=== PATIENT | male | born 1995 | race American Indian/Alaskan Native ===

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

== ENCOUNTER 2017-04-30 07:41 | Emergency (ER) | payer MEDICAID ==
[2017-04-30 08:29] VITALS: BP 130/85
--- NOTE | 2017-04-30 09:22 | XRay Report ---
ABDOMEN TWO VIEWS: 04/30/17 08:40:00 CLINICAL: Abdominal pain. COMPARISON:None. FINDINGS: Supine upright views demonstrate a normal bowel gas pattern with a large volume of stool throughout the colon. Gas and stool in the rectum. No distended small bowel and no air-fluid levels. Mild distention of the stomach. No pneumoperitoneum. No mass or suspicious calcifications. The bones and soft tissues are normal. IMPRESSION: Negative abdomen.
--- NOTE | 2017-04-30 11:32 | Emergency Department Report ---
ED Abdominal Pain HPI - General Chief Complaint: Abdominal Pain Stated Complaint: CONSTIPATED Source: patient Mode of arrival: Ambulatory Limitations: No Limitations - History of Present Illness MD Complaint: abdominal pain -: Gradual Location: diffuse Migration to: no migration Severity scale (0 -10): 0 Worsens With: bowel movement Associated Symptoms: denies other symptoms - Related Data Previous Rx's Medication Instructions Recorded Last Taken Type Ibuprofen [Motrin] 600 mg PO Q8H PRN #15 tablet 09/18/16 Unknown Rx Allergies Allergy/AdvReac Type Severity Reaction Status Date / Time No Known Allergies Allergy Verified 04/30/17 08:23 ED Review of Systems ROS: Stated complaint: CONSTIPATED Other details as noted in HPI Comment: All other systems reviewed and negative Gastrointestinal: abdominal pain ED Past Medical Hx - Past Medical History Additional medical history: PYLENORIC STENOSIS; history of a bowel obstruction as a child - Surgical History Additional Surgical History: PYLENORIC STENOSIS - Social History Smoking Status: Never Smoker Substance Use Type: None - Medications Home Medications: Home Medications Medication Instructions Recorded Confirmed Last Taken Type Ibuprofen [Motrin] 600 mg PO Q8H PRN #15 tablet 09/18/16 Unknown Rx ED Physical Exam - General Limitations: No Limitations General appearance: alert - Head Head exam: Present: atraumatic - Eye Eye exam: Present: normal appearance Pupils: Present: normal accommodation - ENT ENT exam: Present: normal exam - Neck Neck exam: Present: normal inspection - Respiratory Respiratory exam: Present: normal lung sounds bilaterally - Cardiovascular Cardiovascular Exam: Present: regular rate - GI/Abdominal GI/Abdominal exam: Present: soft, normal bowel sounds. Absent: distended, tenderness, guarding, rebound, rigid, diminished bowel sounds, hyperactive bowel sounds, hypoactive bowel sounds, organomegaly, mass, bruit, pulsatile mass , hernia - Rectal Rectal exam: Present: deferred - Extremities Exam Extremities exam: Present: normal inspection - Back Exam Back exam: Present: normal inspection - Neurological Exam Neurological exam: Present: alert, oriented X3 - Psychiatric Psychiatric exam: Present: normal affect, normal mood - Skin Skin exam: Present: warm, dry ED Course Vital Signs 04/30/17 04/30/17 08:24 08:29 Temperature 97.8 F 97.8 F Pulse Rate 64 Respiratory 18 Rate Blood Pressure 130/85 Blood Pressure 130/85 [Right] O2 Sat by Pulse 100 Oximetry - Reevaluation(s) Reevaluation #1: 04/30/17 11:46 to er several hours ago for constipation states had bowel obstruction in past abd series neg no abd pain no n/v/d 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 he is non ill non toxic abd non tender no fever taking po needed work note. dc home w dc poc. ED Medical Decision Making - Radiology Data Radiology results: report reviewed, image reviewed - Medical Decision Making see note - Differential Diagnosis ro obstruction Critical care attestation.: If time is entered above; I have spent that time in minutes in the direct care of this critically ill patient, excluding procedure time. ED Disposition Clinical Impression: Constipation Disposition: DC-01 TO HOME OR SELFCARE Is pt being admited?: No Does the pt Need Aspirin: No Condition: Stable Instructions: Constipation (ED) Additional Instructions: over the counter miralax today then colace twice per day high fiber diet increase water in diet Referrals: PRIMARY CARE [Primary Care Provider] - 3-5 Days [facility][Note 3] [Outside] - 3-5 Days [facility] [Outside] - 3-5 Days Forms: Work/School Release Form(ED) Time of Disposition: 11:26
== END 2017-04-30 11:40 | disposition home or self-care (01) ==
LOC: ED 07:41
DX: K59.00 Constipation, unspecified (principal)
CPT/HCPCS: 74019

== ENCOUNTER 2017-05-30 00:53 | Emergency (ER) | payer MEDICAID ==
[2017-05-30 02:03] LABS: Bilirubin,Urine NEG (Negative); Blood,Urine NEG (Negative); Color,Urine Amber (Yellow); Mucus,Urine 3+ /HPF
[2017-05-30 02:43] LABS: Hemoglobin 14.8 gm/dl (11.8-15.2); Mean Corpuscular HGB Conc 34 % (32-34); Mean Corpuscular Hemoglobin 28 pg (28-32); Mean Corpuscular Volume 84 fl (84-94); Platelet Count 299 K/mm3 (140-440); Red Blood Count 5.22 M/mm3 (3.65-5.03); Red Cell Distribution Width 13.1 % (13.2-15.2)
[2017-05-30] MEDS ORDERED: BICILLIN L-A IM ONE (02:55)
--- NOTE | 2017-05-30 03:03 | Emergency Department Report ---
HPI - General Chief Complaint: Urogenital-Male Time Seen by Provider: 05/30/17 02:45 - HPI HPI: Room 25 The patient is a 21-year-old male presenting with chief complaint of abdominal pain and penile sore. The patient states he has had constant lower abdominal soreness for the past 3-4 weeks in addition to nausea and vomiting. The patient states she's been constipated for the same amount of time and laxatives do not help. The patient states approximately one month ago he noticed a sore on his penis as well as a "knot" in his right groin. When asked if the penile lesion hurts, the patient replies that it is "a little sore." The patient states this penile lesion is the reason he thought he may have been exposed to HIV. Patient states that he has not had any exposure to someone known to have HIV. The patient admits to chills and a subjective fever at home. Location: [See above] Duration: [See above] Quality: [See above] Severity: [See above] Modifying factors: [see above] Context: [see above] Mode of transportation: unknown ED Past Medical Hx - Past Medical History Previous Medical History?: Yes Additional medical history: Pyloric stenosis; history of a bowel obstruction as a child - Surgical History Past Surgical History?: Yes Additional Surgical History: Correction of pyloric stenosis - Family History Family history: no significant - Social History Smoking Status: Never Smoker Substance Use Type: None (denies illicit drug use), Alcohol (occasional) - Medications Home Medications: Home Medications Medication Instructions Recorded Confirmed Last Taken Type Ibuprofen [Motrin] 600 mg PO Q8H PRN #15 tablet 09/18/16 Unknown Rx Docusate Sodium [Colace] 100 mg PO BID PRN #30 capsule 05/30/17 Unknown Rx Doxycycline [Vibramycin CAP] 100 mg PO Q12HR #20 capsule 05/30/17 Unknown Rx HYDROcodone/APAP 5-325 [[place] 1 - 2 each PO Q6HR PRN #10 tablet 05/30/17 Unknown Rx 5/325] Lactulose [Cephulac] 20 gm PO QDAY #90 ml 05/30/17 Unknown Rx ED Review of Systems ROS: Stated complaint: POSSIBLE HIV EXPOSURE,HERNIA Other details as noted in HPI Constitutional: chills, fever Gastrointestinal: abdominal pain, nausea, vomiting, constipation Genitourinary: other (penile sore) Physical Exam - Physical Exam Vital Signs: Vital Signs 05/30/17 01:12 Temperature 98.4 F Pulse Rate 70 Respiratory 18 Rate Blood Pressure 130/83 O2 Sat by Pulse 100 Oximetry Physical Exam: GENERAL: The patient is well-developed well-nourished male lying on stretcher not appearing to be in acute distress. [] HEENT: Normocephalic. Atraumatic. Extraocular motions are intact. Patient has moist mucous membranes. NECK: Supple. Trachea midline CHEST/LUNGS: Clear to auscultation. There is no respiratory distress noted. HEART/CARDIOVASCULAR: Regular. There is no tachycardia. There is no gallop rub or murmur. ABDOMEN: Abdomen is soft, with tenderness to palpation in the right lower quadrant, suprapubic and left lower quadrant. Patient has normal bowel sounds. There is no abdominal distention. SKIN: There is a singular circular lesion that is indurated to the right side of the penis that appears consistent with primary syphilis. The lesion is approximately 1.5 cm in diameter NEURO: The patient is awake, alert, and oriented. The patient is cooperative. The patient has normal speech MUSCULOSKELETAL: There is no evidence of acute injury. *The nurse Olaf was present during the genitourinary exam* ED Course Vital Signs 05/30/17 01:12 Temperature 98.4 F Pulse Rate 70 Respiratory 18 Rate Blood Pressure 130/83 O2 Sat by Pulse 100 Oximetry ED Medical Decision Making - Lab Data Result diagrams: 05/30/17 02:29 05/30/17 02:29 Laboratory Tests 05/30/17 05/30/17 05/30/17 01:33 02:29 02:29 WBC 6.1 RBC 5.22 H Hgb 14.8 Hct 44.0 MCV 84 MCH 28 MCHC 34 RDW 13.1 L Plt Count 299 Sodium 139 Potassium 3.5 L Chloride 98.8 Carbon Dioxide 28 Anion Gap 16 BUN 12 Creatinine 0.8 Estimated GFR > 60 BUN/Creatinine Ratio 15 Glucose 82 Calcium 9.2 Total Bilirubin 0.40 AST 19 ALT 7 Alkaline Phosphatase 81 Total Protein 8.6 H Albumin 4.0 Albumin/Globulin Ratio 0.9 Urine Color [place] Urine Turbidity Clear Urine pH 6.0 Ur Specific [place] 1.028 Urine Protein 30 mg/dl Urine Glucose (UA) Neg Urine Ketones Tr Urine Blood Neg Urine Nitrite Neg Urine Bilirubin Neg Urine Urobilinogen 4.0 Ur Leukocyte Esterase Sm Urine WBC (Auto) 31.0 H Urine RBC (Auto) 1.0 Urine Mucus 3+ - Radiology Data Radiology results: report reviewed (CT abdomen and pelvis), image reviewed (CT abdomen and pelvis) FINAL REPORT EXAM: CT ABDOMEN PELVIS W CON HISTORY: lower abdominal pain TECHNIQUE: CT images are acquired through the Abdomen and Pelvis following intravenous administration of contrast. Transaxial, coronal and sagittal reformations are provided. PRIORS: None FINDINGS: Partially visualized intrathoracic contents are unremarkable. The liver, gallbladder, pancreas, spleen, and adrenal glands are unremarkable. Kidneys show no worrisome lesions, hydronephrosis, or calculi. Urinary bladder is unremarkable. Small and large bowel are normal in caliber. Appendix is normal. Small volume of pelvic ascites. No focal fluid collection to suggest abscess formation. No pneumoperitoneum. Aorta is normal in course and caliber. Superficial soft tissues are unremarkable. No acute or aggressive appearing skeletal findings. IMPRESSION: Small volume of pelvic ascites is most likely secondary to gastrointestinal infection/inflammation. No bowel wall thickening, pneumoperitoneum or abscess formation identified. The appendix is normal. Transcribed By: MB Dictated By: GREGG GONZALEZ MD Electronically Authenticated By: GREGG GONZALEZ MD Signed Date/Time: 05/30/17457 DD/ 7 TD/TT: 05/30/17457 - Differential Diagnosis primary syphilis, constipation, small bowel obstruction Critical care attestation.: If time is entered above; I have spent that time in minutes in the direct care of this critically ill patient, excluding procedure time. ED Disposition Clinical Impression: Primary syphilis, Abdominal pain, Constipation Disposition: -01 TO HOME OR SELFCARE Is pt being admited?: No Does the pt Need Aspirin: No Condition: Stable Instructions: Syphilis (ED) Additional Instructions: You were administered penicillin G benzathine 2.4 million units IM in the ED for treatment of primary syphilis. Return to the emergency department immediately should you develop worsening symptoms, fever, inability to tolerate food or liquid or any other concerns. Prescriptions: Docusate Sodium [Colace] 100 mg PO BID PRN #30 capsule PRN Reason: Constipation Doxycycline [Vibramycin CAP] 100 mg PO Q12HR #20 capsule HYDROcodone/APAP 5-325 [[place] 5/325] 1 - 2 each PO Q6HR PRN #10 tablet PRN Reason: Pain Lactulose [Cephulac] 20 gm PO QDAY #90 ml Referrals: JG WOLF MD [Staff Physician] - 3-5 Days (Dr. Wolf is a urologist. Please follow-up with him for further evaluation of your penile lesion) [facility] [Outside] - 3-5 Days Time of Disposition: 05:29
[2017-05-30 03:08] LABS: Alanine Aminotransferase 7 units/L (7-56); BUN/Creatinine Ratio 15; Blood Urea Nitrogen 12 mg/dL (9-20); Calcium 9.2 mg/dL (8.4-10.2); Hemolysis Index 5
[2017-05-30] MEDS ORDERED: ZOFRAN IV ONE (03:14)
[2017-05-30 03:28] VITALS: BP 132/72
--- NOTE | 2017-05-30 05:03 | Cat Scan Report ---
FINAL REPORT EXAM: CT ABDOMEN PELVIS W CON HISTORY: lower abdominal pain TECHNIQUE: CT images are acquired through the Abdomen and Pelvis following intravenous administration of contrast. Transaxial, coronal and sagittal reformations are provided. PRIORS: None FINDINGS: Partially visualized intrathoracic contents are unremarkable. The liver, gallbladder, pancreas, spleen, and adrenal glands are unremarkable. Kidneys show no worrisome lesions, hydronephrosis, or calculi. Urinary bladder is unremarkable. Small and large bowel are normal in caliber. Appendix is normal. Small volume of pelvic ascites. No focal fluid collection to suggest abscess formation. No pneumoperitoneum. Aorta is normal in course and caliber. Superficial soft tissues are unremarkable. No acute or aggressive appearing skeletal findings. IMPRESSION: Small volume of pelvic ascites is most likely secondary to gastrointestinal infection/inflammation. No bowel wall thickening, pneumoperitoneum or abscess formation identified. The appendix is normal.
== END 2017-05-30 05:38 | disposition home or self-care (01) ==
LOC: ED 00:53
DX: A51.0 Primary genital syphilis (principal); R10.9 Unspecified abdominal pain; K59.00 Constipation, unspecified
CPT/HCPCS: 36415; 74177; 80053; 81001; 85027; 86592; 86593; 86780; 87591; 96372; 96374; 99284; J0561; J2405; Q9967

== ENCOUNTER 2017-07-14 08:47 | Emergency (ER) | payer MEDICAID ==
[2017-07-14 09:08] VITALS: BP 124/83
--- NOTE | 2017-07-14 09:46 | Emergency Department Report ---
ED Male HPI - General Chief complaint: Urogenital-Male Stated complaint: STD Time Seen by Provider: 07/14/17 09:38 Source: patient Mode of arrival: Ambulatory Limitations: No Limitations - History of Present Illness Initial comments: This is a 21-year-old male nontoxic, well nourished in appearance, no acute signs of distress presents to the ED with c/o of penile discharge. Patient stated that he had a sexual intercourse unprotected 2 weeks ago and then developed these symptoms. Patient stated that in the triage he stated "possible syphilis" but then stated it was gonorrhea and chlamydia that he meant. Denies any rash. Patient denies any testicular pain, penile ulcers, penile lesions, testicular swelling. Patient denies any body aches, fever, chills, nausea, vomiting, headache, stiff neck, numbness or tingling. Patient denies any chest pain or shortness of breath. Patient denies any urinary symptoms. He denies any allergies or significant past medical history. Patient stated he wants to be treated empirically in the ED. MD Complaint: penile discharge -: week(s) (1) Location: penis Radiation: none Severity: mild Severity scale (0 -10): 0 Improves with: none Worsens with: none discharge. denies: swelling, mass, rash, urinary retention, blood in urine, dysuria, fever, nausea/vomiting, incontinence - Related Data Sexually active: Yes Previous Rx's Medication Instructions Recorded Last Taken Type Ibuprofen [Motrin] 600 mg PO Q8H PRN #15 tablet 09/18/16 Unknown Rx Docusate Sodium [Colace] 100 mg PO BID PRN #30 capsule 05/30/17 Unknown Rx Doxycycline [Vibramycin CAP] 100 mg PO Q12HR #20 capsule 05/30/17 Unknown Rx HYDROcodone/APAP 5-325 [[place] 1 - 2 each PO Q6HR PRN #10 tablet 05/30/17 Unknown Rx 5/325] Lactulose [Cephulac] 20 gm PO QDAY #90 ml 05/30/17 Unknown Rx Allergies Allergy/AdvReac Type Severity Reaction Status Date / Time No Known Allergies Allergy Verified 04/30/17 08:23 ED Review of Systems ROS: Stated complaint: STD Other details as noted in HPI Constitutional: denies: chills, fever Eyes: denies: eye pain, eye discharge, vision change ENT: denies: ear pain, throat pain Respiratory: denies: cough, shortness of breath, wheezing Cardiovascular: denies: chest pain, palpitations Endocrine: no symptoms reported Gastrointestinal: denies: abdominal pain, nausea, diarrhea Genitourinary: discharge. denies: urgency, dysuria, frequency, hematuria Musculoskeletal: denies: back pain, joint swelling, arthralgia Skin: denies: rash, lesions Neurological: denies: headache, weakness, paresthesias Psychiatric: denies: anxiety, depression Hematological/Lymphatic: denies: easy bleeding, easy bruising ED Past Medical Hx - Past Medical History Previous Medical History?: Yes Additional medical history: Pyloric stenosis; history of a bowel obstruction as a child - Surgical History Past Surgical History?: Yes Additional Surgical History: Correction of pyloric stenosis - Social History Smoking Status: Never Smoker Substance Use Type: Marijuana - Medications Home Medications: Home Medications Medication Instructions Recorded Confirmed Last Taken Type Ibuprofen [Motrin] 600 mg PO Q8H PRN #15 tablet 09/18/16 Unknown Rx Docusate Sodium [Colace] 100 mg PO BID PRN #30 capsule 05/30/17 Unknown Rx Doxycycline [Vibramycin CAP] 100 mg PO Q12HR #20 capsule 05/30/17 Unknown Rx HYDROcodone/APAP 5-325 [[place] 1 - 2 each PO Q6HR PRN #10 tablet 05/30/17 Unknown Rx 5/325] Lactulose [Cephulac] 20 gm PO QDAY #90 ml 05/30/17 Unknown Rx ED Physical Exam - General Limitations: No Limitations General appearance: alert, in no apparent distress - Head Head exam: Present: atraumatic, normocephalic - Eye Eye exam: Present: normal appearance Pupils: Present: normal accommodation - ENT ENT exam: Present: normal exam, mucous membranes moist - Neck Neck exam: Present: normal inspection, full ROM - Respiratory Respiratory exam: Present: normal lung sounds bilaterally. Absent: respiratory distress, wheezes, rales, rhonchi, stridor - Cardiovascular Cardiovascular Exam: Present: regular rate, normal rhythm, normal heart sounds. Absent: bradycardia, tachycardia, irregular rhythm, systolic murmur, diastolic murmur, rubs, gallop - GI/Abdominal GI/Abdominal exam: Present: soft, normal bowel sounds - Rectal Rectal exam: Present: deferred - exam: Present: normal inspection, urethral discharge, other (No testicular pain or swelling. No penile lesions or ulcers.). Absent: testicular tenderness , scrotal swelling, vertical testicular lie External exam: Present: normal external exam. Absent: erythema, swelling, lesions, lacerations, ecchymosis, bleeding - Extremities Exam Extremities exam: Present: normal inspection, full ROM, normal capillary refill - Back Exam Back exam: Present: normal inspection, full ROM - Neurological Exam Neurological exam: Present: alert, oriented X3, normal gait - Psychiatric Psychiatric exam: Present: normal affect, normal mood - Skin Skin exam: Present: warm, dry, intact, normal color. Absent: rash ED Course Vital Signs 07/14/17 09:04 Temperature 98.6 F Pulse Rate 61 Respiratory 16 Rate Blood Pressure 124/83 O2 Sat by Pulse 100 Oximetry - Reevaluation(s) Reevaluation #1: 07/14/17 09:47 Patient is speaking in full sentences with no signs of distress noted. ED Medical Decision Making - Medical Decision Making This is a 21-year-old male that presents with possible STD. Patient denies any urinary symptoms. Patient is stable and was examined by me. Gonorrhea chlamydia swab has been obtained. Patient was instructed to return in 3 days for results. Patient wants to be treated empirically as patient received Rocephin and azithromycin. Patient was instructed to Follow-up with a primary care doctor in 3-5 days or if symptoms worsen and continue return to emergency room as soon as possible. At time of discharge, the patient does not seem toxic or ill in appearance. No acute signs of distress noted. Patient agrees to discharge treatment plan of care. No further questions noted by the patient. Critical care attestation.: If time is entered above; I have spent that time in minutes in the direct care of this critically ill patient, excluding procedure time. ED Disposition Clinical Impression: Possible exposure to STD Disposition: DC-01 TO HOME OR SELFCARE Is pt being admited?: No Does the pt Need Aspirin: No Condition: Stable Instructions: Safe Sex (ED) Additional Instructions: Follow-up with a primary care doctor in 3-5 days or if symptoms worsen and continue return to emergency room as soon as possible. Return in 3-5 days for gonorrhea and chlamydia results. Referrals: ANJU BERNARD MD [Primary Care Provider] - 3-5 Days MALLORIE MALONE MD [Staff Physician] - 3-5 Days [facility] [Outside] - 3-5 Days Forms: Work/School Release Form(ED)
[2017-07-14] MEDS ORDERED: ZITHROMAX PO ONE (09:48)
[2017-07-14] MEDS ORDERED: XYLOCAINE 1% MPF 5 mL INFILTRATI ONE (09:48)
[2017-07-14] MEDS ORDERED: ROCEPHIN IM ONE (09:48)
== END 2017-07-14 10:36 | disposition home or self-care (01) ==
LOC: ED 08:47
DX: R36.9 Urethral discharge, unspecified (principal)
CPT/HCPCS: 96372; 99282; J0696

== ENCOUNTER 2017-07-26 21:09 | Emergency (ER) | payer MEDICAID ==
[2017-07-26] MEDS ORDERED: DECADRON IM ONE (22:15)
[2017-07-26] MEDS ORDERED: BICILLIN L-A IM ONE (22:15)
--- NOTE | 2017-07-26 22:15 | Emergency Department Report ---
ED ENT HPI - General Chief complaint: Sore Throat Stated complaint: SORE THROAT Time Seen by Provider: 07/26/17 22:08 Source: patient Mode of arrival: Ambulatory Limitations: No Limitations - History of Present Illness Initial comments: 21-year-old male past medical history none presents with complaint of 2-3 days of sore throat and fever and painful swallowing solids. Patient speaking in full sentences and is no drooling. Awake alert and oriented 3. Fully lucid. Slight body aches reported. States he was taking some Motrin with minimal relief. States he has a history of recurrent throat infections. MD complaint: sore throat Onset/Timin -: hour(s) Location: throat Severity: moderate Severity scale (0 -10): 5 Quality: aching Consistency: intermittent Improves with: none Worsens with: none Associated Symptoms: pain with swallowing, sore throat - Related Data Previous Rx's Medication Instructions Recorded Last Taken Type Ibuprofen [Motrin] 600 mg PO Q8H PRN #15 tablet 09/18/16 Unknown Rx Docusate Sodium [Colace] 100 mg PO BID PRN #30 capsule 05/30/17 Unknown Rx Doxycycline [Vibramycin CAP] 100 mg PO Q12HR #20 capsule 05/30/17 Unknown Rx HYDROcodone/APAP 5-325 [[place] 1 - 2 each PO Q6HR PRN #10 tablet 05/30/17 Unknown Rx 5/325] Lactulose [Cephulac] 20 gm PO QDAY #90 ml 05/30/17 Unknown Rx Ibuprofen [Motrin] 800 mg PO Q8HR PRN #20 tablet 07/26/17 Unknown Rx Allergies Allergy/AdvReac Type Severity Reaction Status Date / Time No Known Allergies Allergy Verified 04/30/17 08:23 ED Dental HPI - General Chief complaint: Sore Throat Stated complaint: SORE THROAT Time Seen by Provider: 07/26/17 22:08 Source: patient Mode of arrival: Ambulatory Limitations: No Limitations - Related Data Previous Rx's Medication Instructions Recorded Last Taken Type Ibuprofen [Motrin] 600 mg PO Q8H PRN #15 tablet 09/18/16 Unknown Rx Docusate Sodium [Colace] 100 mg PO BID PRN #30 capsule 05/30/17 Unknown Rx Doxycycline [Vibramycin CAP] 100 mg PO Q12HR #20 capsule 05/30/17 Unknown Rx HYDROcodone/APAP 5-325 [[place] 1 - 2 each PO Q6HR PRN #10 tablet 05/30/17 Unknown Rx 5/325] Lactulose [Cephulac] 20 gm PO QDAY #90 ml 05/30/17 Unknown Rx Ibuprofen [Motrin] 800 mg PO Q8HR PRN #20 tablet 07/26/17 Unknown Rx Allergies Allergy/AdvReac Type Severity Reaction Status Date / Time No Known Allergies Allergy Verified 04/30/17 08:23 ED Review of Systems ROS: Stated complaint: SORE THROAT Other details as noted in HPI Constitutional: malaise. denies: chills, fever Eyes: denies: eye pain, eye discharge, vision change ENT: throat pain. denies: ear pain Respiratory: denies: cough, shortness of breath, wheezing Cardiovascular: denies: chest pain, palpitations Endocrine: no symptoms reported Gastrointestinal: denies: abdominal pain, nausea, diarrhea Genitourinary: denies: urgency, dysuria Musculoskeletal: denies: back pain, joint swelling, arthralgia Skin: denies: rash, lesions Neurological: denies: headache, weakness, paresthesias Psychiatric: denies: anxiety, depression Hematological/Lymphatic: denies: easy bleeding, easy bruising ED Past Medical Hx - Past Medical History Additional medical history: Pyloric stenosis; history of a bowel obstruction as a child - Surgical History Additional Surgical History: Correction of pyloric stenosis - Social History Smoking Status: Never Smoker Substance Use Type: None - Medications Home Medications: Home Medications Medication Instructions Recorded Confirmed Last Taken Type Ibuprofen [Motrin] 600 mg PO Q8H PRN #15 tablet 09/18/16 Unknown Rx Docusate Sodium [Colace] 100 mg PO BID PRN #30 capsule 05/30/17 Unknown Rx Doxycycline [Vibramycin CAP] 100 mg PO Q12HR #20 capsule 05/30/17 Unknown Rx HYDROcodone/APAP 5-325 [[place] 1 - 2 each PO Q6HR PRN #10 tablet 05/30/17 Unknown Rx 5/325] Lactulose [Cephulac] 20 gm PO QDAY #90 ml 05/30/17 Unknown Rx Ibuprofen [Motrin] 800 mg PO Q8HR PRN #20 tablet 07/26/17 Unknown Rx ED Physical Exam - General Limitations: No Limitations General appearance: alert, in no apparent distress - Head Head exam: Present: atraumatic, normocephalic - Eye Eye exam: Present: normal appearance, PERRL, EOMI - ENT ENT exam: Present: mucous membranes moist - Expanded ENT Exam Expanded Throat exam: Positive: tonsillar erythema, tonsillar exudate - Neck Neck exam: Present: normal inspection - Respiratory Respiratory exam: Present: normal lung sounds bilaterally. Absent: respiratory distress - Cardiovascular Cardiovascular Exam: Present: regular rate, normal rhythm. Absent: systolic murmur, diastolic murmur, rubs, gallop - GI/Abdominal GI/Abdominal exam: Present: soft, normal bowel sounds - Rectal Rectal exam: Present: deferred - Extremities Exam Extremities exam: Present: normal inspection - Back Exam Back exam: Present: normal inspection - Neurological Exam Neurological exam: Present: alert, oriented X3 - Psychiatric Psychiatric exam: Present: normal affect, normal mood - Skin Skin exam: Present: warm, dry, intact, normal color. Absent: rash ED Course Vital Signs 07/26/17 07/26/17 21:09 21:25 Temperature 99.9 F H 99.9 F H Pulse Rate 98 H 98 H Respiratory 20 20 Rate Blood Pressure 121/80 121/80 O2 Sat by Pulse 98 98 Oximetry ED Medical Decision Making - Medical Decision Making A/P: Strep pharyngitis/tonsillitis 1-empiric treatment with Bicillin 2-Motrin when necessary, throat lozenges when necessary 3-tolerating by mouth before discharge, vital signs stable for discharge 4- follow-up with primary care Critical care attestation.: If time is entered above; I have spent that time in minutes in the direct care of this critically ill patient, excluding procedure time. ED Disposition Clinical Impression: Strep throat Disposition: DC-01 TO HOME OR SELFCARE Is pt being admited?: No Does the pt Need Aspirin: No Condition: Stable Instructions: Strep Throat (ED) Prescriptions: Ibuprofen [Motrin] 800 mg PO Q8HR PRN #20 tablet PRN Reason: Pain Referrals: [facility] [Provider Group] - 3-5 Days [facility] [Outside] - 3-5 Days Forms: Work/School Release Form(ED) Time of Disposition: 22:56
[2017-07-26] MEDS ORDERED: LIDOCAINE VISCOUS 2% PO ONE (22:26)
[2017-07-27 01:18] VITALS: BP 107/72
== END 2017-07-26 23:00 | disposition home or self-care (01) ==
LOC: ED 21:09
DX: J02.0 Streptococcal pharyngitis (principal)
CPT/HCPCS: 87430; 96372; 99283; J0561; J1100

== ENCOUNTER 2017-11-05 18:23 | Emergency (ER) | payer MEDICAID ==
[2017-11-05] MEDS ORDERED: hyperRAB S/D IM ONE (22:23)
[2017-11-05] MEDS ORDERED: RABAVERT RABIES VACCINE(PCEC) IM ONE (22:23)
[2017-11-05] MEDS ORDERED: AUGMENTIN 875 MG PO ONE (22:23)
[2017-11-05] MEDS ORDERED: ULTRAM PO ONE (22:24)
--- NOTE | 2017-11-05 22:45 | Emergency Department Report ---
ED Animal Bite HPI - General Chief Complaint: Animal Bite Stated Complaint: DOG BITE Time Seen by Provider: 11/05/17 22:15 Source: patient Mode of arrival: Ambulatory Limitations: No Limitations - History of Present Illness Initial Comments: 22-year-old -[place] male reports that he was bit by straight YESTERDAY. Patient reports that he was bitten on his right elbow in right great toe. He reports it was unprovoked. Attack. Patient reports that he tried Motrin 800 mg but did not help with this pain. MD Complaint: animal bite -: days(s) (1) Mechanism: scratch - Related Data Previous Rx's Medication Instructions Recorded Last Taken Type Ibuprofen [Motrin] 600 mg PO Q8H PRN #15 tablet 09/18/16 Unknown Rx Docusate Sodium [Colace] 100 mg PO BID PRN #30 capsule 05/30/17 Unknown Rx Doxycycline [Vibramycin CAP] 100 mg PO Q12HR #20 capsule 05/30/17 Unknown Rx HYDROcodone/APAP 5-325 [[place] 1 - 2 each PO Q6HR PRN #10 tablet 05/30/17 Unknown Rx 5/325] Lactulose [Cephulac] 20 gm PO QDAY #90 ml 05/30/17 Unknown Rx Ibuprofen [Motrin] 800 mg PO Q8HR PRN #20 tablet 07/26/17 Unknown Rx Amoxicillin/K Clav Tab [Augmentin 1 each PO Q12HR #20 tablet 11/05/17 Unknown Rx 875MG TAB] traMADol [Ultram 50 MG tab] 50 mg PO Q6HR #12 tablet 11/05/17 Unknown Rx Allergies Allergy/AdvReac Type Severity Reaction Status Date / Time No Known Allergies Allergy Verified 04/30/17 08:23 ED Review of Systems ROS: Stated complaint: DOG BITE Other details as noted in HPI Constitutional: weakness Skin: other (sore on right great toe and right elbow) Neurological: headache ED Past Medical Hx - Past Medical History Previous Medical History?: No Additional medical history: Pyloric stenosis; history of a bowel obstruction as a child - Surgical History Additional Surgical History: Correction of pyloric stenosis - Social History Smoking Status: Never Smoker - Medications Home Medications: Home Medications Medication Instructions Recorded Confirmed Last Taken Type Ibuprofen [Motrin] 600 mg PO Q8H PRN #15 tablet 09/18/16 Unknown Rx Docusate Sodium [Colace] 100 mg PO BID PRN #30 capsule 05/30/17 Unknown Rx Doxycycline [Vibramycin CAP] 100 mg PO Q12HR #20 capsule 05/30/17 Unknown Rx HYDROcodone/APAP 5-325 [[place] 1 - 2 each PO Q6HR PRN #10 tablet 05/30/17 Unknown Rx 5/325] Lactulose [Cephulac] 20 gm PO QDAY #90 ml 05/30/17 Unknown Rx Ibuprofen [Motrin] 800 mg PO Q8HR PRN #20 tablet 07/26/17 Unknown Rx Amoxicillin/K Clav Tab [Augmentin 1 each PO Q12HR #20 tablet 11/05/17 Unknown Rx 875MG TAB] traMADol [Ultram 50 MG tab] 50 mg PO Q6HR #12 tablet 11/05/17 Unknown Rx ED Physical Exam - General Limitations: No Limitations General appearance: alert, in no apparent distress, other (eating crackers and drinking juice in exam room) - Head Head exam: Present: atraumatic, normocephalic - ENT ENT exam: Present: mucous membranes moist - Neurological Exam Neurological exam: Present: alert, oriented X3 - Psychiatric Psychiatric exam: Present: normal affect, normal mood - Expanded Skin Exam Expanded Type of lesion: Present: abrasion Distribution of rash: RUE (elbow), RLE (great toe) Description of rash: Present: tenderness (great toe right, right elbow), swelling (great toe) ED Course Vital Signs 11/05/17 18:25 Temperature 98 F Pulse Rate 87 Blood Pressure 138/82 Critical care attestation.: If time is entered above; I have spent that time in minutes in the direct care of this critically ill patient, excluding procedure time. ED Disposition Clinical Impression: Rabies, need for prophylactic vaccination against Dog bite of foot Qualifiers: Encounter type: initial encounter Laterality: right Qualified Code(s): S91.351A - Open bite, right foot, initial encounter; W54.0XXA - Bitten by dog, initial encounter Dog bite of right elbow Qualifiers: Encounter type: initial encounter Qualified Code(s): S51.051A - Open bite, right elbow, initial encounter; W54.0XXA - Bitten by dog, initial encounter Disposition: DC-01 TO HOME OR SELFCARE Is pt being admited?: No Does the pt Need Aspirin: No Condition: Stable Additional Instructions: Complete antibiotics as prescribed. Pain medication as needed. Please follow up with the [facility] in 3 days and then 7 days and then 14 days from the date of today obtain Prescriptions: Amoxicillin/K Clav Tab [Augmentin 875MG TAB] 1 each PO Q12HR #20 tablet traMADol [Ultram 50 MG tab] 50 mg PO Q6HR #12 tablet Referrals: [facility] [Primary Care Provider] - 3-5 Days [facility] [Other] - 3-5 Days Forms: Work/School Release Form(ED)
[2017-11-05] MEDS ORDERED: BOOSTRIX IM ONE (22:46)
[2017-11-05 23:53] VITALS: BP 132/68
== END 2017-11-05 23:53 | disposition home or self-care (01) ==
LOC: ED 18:23
DX: S51.051A Open bite, right elbow, initial encounter (principal); S91.151A Open bite of right great toe without damage to nail, initial encounter; W54.0XXA Bitten by dog, initial encounter; Y93.89 Activity, other specified; Y92.89 Other specified places as the place of occurrence of the external cause; Y99.8 Other external cause status
CPT/HCPCS: 90375; 90471; 90472; 90675; 90715; 93005; 93010; 96372